=== PATIENT | female | born 1970 | race Caucasian/White ===

== ENCOUNTER 2023-12-15 06:12 | Day surgery (SDC) | payer BC, SELFPAY ==
[2023-12-15] VITALS (14 sets, daily range): BP systolic 100–130; BP diastolic 59–95; BMI 35.5
[2023-12-15] MEDS: CELEBREX 200 MG PO (09:20)
[2023-12-15] MEDS: NORMOSOL-R 1000 IV (09:21)
[2023-12-15] MEDS: TYLENOL 1000 MG PO (09:21)
[2023-12-15] MEDS: DILAUDID 0.5 MG IV ×2 (13:30→13:58)
[2023-12-15] MEDS: DEMEROL 12.5 MG IV ×2 (13:46→14:14)
[2023-12-15] MEDS: ROXICODONE 5 MG PO (16:21)
== END 2023-12-15 17:25 | disposition home or self-care (01) ==
LOC: SDS 06:12
PROVIDERS: ATTENDING PHYSICIAN Student in an Organized Health Care Education/Training Program
DX: S82.851A Displaced trimalleolar fracture of right lower leg, initial encounter for closed fracture (principal); S93.432A Sprain of tibiofibular ligament of left ankle, initial encounter; W10.9XXA Fall (on) (from) unspecified stairs and steps, initial encounter
CPT/HCPCS: 27822; 27829; 73610; 76000; C1713; C1769